=== PATIENT | male | born 1945 | race Caucasian/White ===

== ENCOUNTER 2017-07-23 11:37 | Inpatient (IN) | payer MEDICARE, OTHER ==
[2017-07-23] MEDS ORDERED: NS 1,000 ML IV ONE (12:44)
[2017-07-23 12:58] LABS: PLATELET COUNT 233 10^3/uL (150-400)
--- NOTE | 2017-07-23 13:21 | EDPHY ---
H & P Time Seen by Provider: 07/23/17 12:42 HPI/ROS: Chief complaint. Back pain, leg weakness HPI. Patient is 72-year-old male presents emergency department with back pain for about 6 weeks. He be began to have back pain after working out in the gym. It has continued. About 10 days ago he noticed that he started to have leg weakness and off balance. He has developed a wide-based gait with walking. He knows he has a hard time raising his toes. He has tripped and fallen. He has no radiation of pain from his low back into his legs. No bowel or bladder symptoms. No numbness. Off balance is a big concern and complaint. ROS Constitutional. no fever/chills, no weakness Eyes. no problems with vision ENT. no sore throat, no nasal drainage Cardiovascular. no chest pain Respiratory. no shortness of breath, no cough Abdominal. no abdominal pain, no nausea/vomiting, no diarrhea . no problems urinating MS. Low back pain Skin. no rash Lymph. no swollen glands Neuro. Off balance and leg weakness (Mike Dey) Past Medical/Surgical History: Past medical history is significant for thoracic outlet syndrome, hypertension, bipolar illness (Mike Dey) Social History: , nonsmoker, no alcohol (Mike Dey) Physical Exam: General Appearance: Alert pleasant well-developed male mild distress vital signs stable Eyes: Pupils equal and round no pallor or injection. ENT, Mouth: Mucous membranes are moist. Respiratory: There are no retractions, lungs are clear to auscultation. Cardiovascular: Regular rate and rhythm. Gastrointestinal: Abdomen is soft and nontender, no masses, bowel sounds normal. Neurological: Awake and alert, no numbness or saddle anesthesia. Deep tender reflexes are diminished but symmetrical. Great toe strength is decreased bilaterally. Skin: Warm and dry, no rashes. Musculoskeletal: Neck is supple nontender. Diffuse tenderness to the low back Extremities symmetrical, full range of motion. Psychiatric: Patient is oriented X 3, there is no agitation. (Mike Dey) Constitutional: Initial Vital Signs Temperature (C) 36.6 C 07/23/17 11:41 Heart Rate 90 07/23/17 11:41 Respiratory Rate 16 07/23/17 11:41 Blood Pressure 163/92 H 07/23/17 11:41 O2 Sat (%) 93 07/23/17 11:41 O2 Delivery Mode Room Air Allergies/Adverse Reactions: No Known Allergies Allergy (Unverified 07/23/17 11:41) Home Medications: Medication Instructions Recorded amLODIPine BESYLATE [Norvasc 10 mg 10 mg PO DAILY 07/23/17 (*)] lamoTRIgine [Lamictal] 200 mg PO DAILY 07/23/17 Medical Decision Making - Diagnostics Imaging Results: MRI reviewed by me and discussed with Dr. Trujillo shows severe central canal stenosis at L4-5. This is consistent with cauda equina syndrome (Mike Dey ) Procedures: IV normal saline. (Mike Dey) ED Course/Re-evaluation: I assumed care of this patient from Dr. Dey at approximately 3:00 p.m.. At that point in time his MRI had been resulted, showing severe stenosis at L4-5. Neurosurgery consultation had been requested and was performed in the emergency department. Arrangements were made for the patient to be admitted to the Neurosurgical service in preparation for operative intervention. I was not otherwise involved in his care. (Ro Robins) Patient and I discussed imaging and lab results. We discussed treatment plan including recommendation for admission and neurosurgery consult. He expresses understanding and agreement (Mike Dey) Differential Diagnosis: I considered cauda equina syndrome. He does have bowel or bladder symptoms or saddle anesthesia but he has new gait disturbance and leg weakness. I also considered HNP as well as urinary tract infection (Mike Dey) Care Turn Over: Dr. Robins at 3:30 p.m. (Mike Dey) - Data Points Laboratory Results: Laboratory Results 07/23/17 12:50 07/23/17 12:50 Medications Given: Lactated Ringer's (Lr) 1,000 mls @ 100 mls/hr IV CONT GEORGES Stop: 01/19/18 23:54 Last Admin: 07/23/17 23:46 Dose: 1,000 mls Oxycodone HCl (Oxycodone Ir) 5 mg PO Q4HRS PRN PRN Reason: Pain, Severe Able to Take PO Stop: 08/02/17 16:34 Last Admin: 07/24/17 09:50 Dose: 5 mg Polyethylene Glycol (Miralax) 17 gm PO DAILY GEORGES Stop: 01/19/18 16:59 Last Admin: 07/23/17 19:02 Dose: Not Given Discontinued Medications Bacitracin (Bacitracin Syringe) Confirm Administered Dose 200,000 units IRR .STK -MED ONE Stop: 07/24/17 11:08 Last Admin: 07/24/17 14:23 Dose: 200,000 units Bupivacaine HCl (Sensorcaine 0.25% Sdv) Confirm Administered Dose 60 ml .ROUTE .STK-MED ONE Stop: 07/24/17 11:06 Last Admin: 07/24/17 14:22 Dose: 60 ml Chlorhexidine Gluconate (Hibiclens) Confirm Administered Dose 1 btl TP .STK-MED ONE Stop: 07/24/17 11:07 Last Admin: 07/24/17 14:22 Dose: 1 btl Epinephrine HCl (Epinephrine) Confirm Administered Dose 1 mg .ROUTE .STK-MED ONE Stop: 07/24/17 11:07 Last Admin: 07/24/17 14:23 Dose: 1 mg Sodium Chloride (Ns) 1,000 mls @ 0 mls/hr IV EDNOW ONE; Wide Open PRN Reason: Protocol Stop: 07/23/17 12:45 Last Admin: 07/23/17 13:17 Dose: 1,000 mls Lactated Ringer's (Lr) 1,000 mls @ 0 mls/hr IV ONCE ONE PRN Reason: KVO Stop: 07/24/17 11:56 Last Admin: 07/24/17 12:15 Dose: 1,000 mls Midazolam HCl (Versed) 1 mg IVP ONCE ONE Stop: 07/24/17 12:28 Last Admin: 07/24/17 13:20 Dose: 1 mg Thrombin (Thrombin-Jmi) Confirm Administered Dose 5,000 unit TP .STK-MED ONE Stop: 07/24/17 11:07 Last Admin: 07/24/17 14:21 Dose: 5,000 unit Departure - Departure Disposition: [facility] Inpatient Acute Clinical Impression: Lumbar canal stenosis Qualifiers: Neurogenic claudication status: unspecified Qualified Code(s): M48.061 - Spinal stenosis, lumbar region without neurogenic claudication Condition: Fair
[2017-07-23] MEDS ORDERED: ceFAZolin 2 GM/SWFI 2 GM/20 ML SYR IVP ONE (16:35)
[2017-07-23] MEDS ORDERED: BISACODYL 5 MG EC TAB PO ONE (16:35)
[2017-07-23] MEDS ORDERED: GABAPENTIN 300 MG CAP PO ONE (16:41)
--- NOTE | 2017-07-23 17:03 | GHP ---
]' [ rep st] HISTORY AND PHYSICAL DATE OF ADMISSION: 07/23/2017 Patient seen in the emergency department by neurosurgical service in room 18 on 07/23/2017 at 1610. CHIEF COMPLAINT: Back pain, bilateral leg weakness, and gait disturbance. HISTORY OF PRESENT ILLNESS: The patient is a 72-year-old male who presented emergency department with back pain that really started approximately 6 weeks ago when he was doing a back lifting program. He was doing some lifts as well as leg presses. He felt some onset of back pain at that time, and then over the course of the past nearly 5 weeks, he developed worsening symptoms. The pain has progressed to the point where he is unable to walk as well. He has been at home for the last 8 days. He states the pain would go up and down. He would wake up in the morning, extremely weak and then would walk for approximately 2-3 hours, and then he would have some mild relief. He has had worsening weakness in the legs over the course of the last 8 days, but has been stable over the last few days. He saw Dr. Spangler, his PCP, and he directed him to the emergency department. At the emergency department, he had an MRI of the lumbar spine which showed severe stenosis at L4-5. He denies any bowel or bladder problems. He is voiding okay both moving his bowels as well as peeing. He has no incontinence or urinary retention. He denies any lower extremity pain. He does have weakness in the legs. PAST MEDICAL HISTORY: 1. Significant for hypertension. 2. Bipolar. MEDICATIONS: 1. Lamictal. 2. Norvasc. ALLERGIES: No known drug allergies. PAST SURGICAL HISTORY: Multiple bilateral knee surgeries. FAMILY HISTORY: Parents with cancer. SOCIAL HISTORY: The patient is 72 years old. He is single. He lives in [place]. He is retired. IMMUNIZATIONS: Reported up to date. TRAVEL: Recent travel. REVIEW OF SYSTEMS: Complete review of systems in conjunction with above, noted for the following. No headache. No diplopia. No blurred vision. No loss of visual field. No hearing loss, tinnitus, or vertigo. PULMONARY: No cough, sputum production, hemoptysis, dyspnea, or pleuritic chest pain. CARDIAC: No chest pain or pressure. No palpitations. GI: No weight loss or gain. No nausea, vomiting, or diarrhea. : No dysuria, hematuria, nocturia, urgency, or frequency. NEURO: Patient denies any dizziness, syncope, seizures, vertigo. He does have bilateral lower extremity weakness. No weakness to upper extremities. PSYCHIATRIC: No suicidality or homicidality PHYSICAL EXAMINATION: GENERAL: Awake, alert, and oriented male, in no acute distress. He is able to follow commands appropriately. VITAL SIGNS: Most recent blood pressure 163/92 with a MAP of 115, 90 heart rate, respiratory rate of 16, 93% in room air, temperature 36.6. HEENT. Head is normocephalic, atraumatic. Pupils are equal, round, and reactive to light. EOMI is intact. Full visual murphy by confrontation. Ears are patent. Nose is patent. NECK: Soft and supple. Midline tenderness. Full range of motion in flexion, extension, lateral bending, and rotation. RESPIRATORY: Deferred. CARDIAC: Deferred. ABDOMEN: Soft, nontender. No peritoneal signs. /RECTAL: Deferred. NEURO: Awake, alert, and oriented to name, place, location, date, time, and situation. Memory is intact to immediate, past, and current events. Speech with no aphasia, dysarthria, or dysphonia. Cranial nerves 2 through 12 are grossly intact. Motor: Patient has 5/5 strength in all muscle groups of bilateral upper and lower extremities to include deltoids, biceps, triceps, brachioradialis, wrist flexors, extensors, drying and winding supervisor, intrinsic fingers, iliopsoas, quadriceps, hamstring, plantar flexion, dorsiflexion and EHL testing, with the exception of left EHL at 5- but right of EHL 5/5. Sensation is grossly intact to light touch throughout all dermatomal distributions upper and lower extremities. Negative straight leg raise. Negative SRINATH test. Reflexes of biceps, triceps, brachioradialis, knee jerk and ankle jerk are 2+ out of 4 with the exception of bilateral knee jerk (due to prior surgery) at 1+ on the left and 0 on the right. Patient has had extensive knee surgery. MEDICAL DECISION MAKING/DIAGNOSTIC STUDIES/LABORATORY TESTS: Obtained 2017 shows a white count of 7.17 with an H and H of 16.6 and 46.1 and a platelet count of 233. Chemistry on 07/23/2017: Sodium 139, potassium 4.1, chloride 100, CO2 26, BUN 9, creatinine 0.7, and glucose 91. MEDICAL DECISION MAKING/DIAGNOSTIC STUDIES/IMAGING: MRI of the lumbar spine obtained 07/23/2017 at 1245 shows at L1-2 there is no disk herniation or stenosis. 2-3 disk desiccation, mild diffuse annular bulge. L3-4 disk desiccation, diffuse annular bulge with mild acquired central canal stenosis. Neural foramina are moderately stenotic bilaterally secondary to diffuse annular bulge. At 4-5, there is a broad-based subligamentous central disk protrusion ventrally with ligamentum flavum and facet degenerative hypertrophy posteriorly with severe acquired central canal stenosis and marked crowding of the cauda equina in the thecal space. There are also some extruded disk fragments which tracks along inferior to the right lateral recess, paralleling the right L5 nerve root. There is local mass effect on the L5 nerve root. The disk fragment measures 12 mm in cranial caudal extension and 5.5 mm in width. L5-S1 shows disk desiccation and diffuse annular bulge without discrete disk prolapse. Neural foramina are moderately narrow bilaterally. ASSESSMENT: Back pain that started 6 weeks ago with worsening symptoms over the last 8 days. Stable weakness over the past 2-3 days with severe L4-5 stenosis secondary to disk bulge and ligamentum flavum hypertrophy. PLAN/DISCUSSION: The patient is a 72-year-old male who will be admitted to our service for lower back pain and bilateral lower extremity weakness. He had originally injured his back approximately 6 weeks ago when he was doing some lifts and inclined sled work. He felt a twinge in his back and then over the course of the last nearly 5 weeks he has had this stable back pain. Over the course of the last 8 days, and really stable over the last 3 days, he has had weakness in the lower extremities. He saw his primary care doctor today who sent him to the emergency department and had an MRI done of his lumbar spine which showed the severe stenosis. The patient was seen and evaluated by both me and Dr. Jameson. I will develop a plan accordingly. He is not on any blood thinning medicines. He has not been n.p.o. today. I did instruct him that he needs to be n.p.o. at this time. Dr. Jameson will see and evaluate him and likely add him on tomorrow for a laminectomy at L4-5 vs lami/fusion at L4/5 pending further review of imaging, and a decision. All questions and concerns were answered. Patient understands and agrees. /[id number]/MODL MTDD
[2017-07-23] MEDS: POLYETHYLENE GLYCOL 3350 17 GM PKT PO SCH (19:02)
[2017-07-23] MEDS: oxyCODONE IR 5 MG TAB PO PRN (23:45)
[2017-07-23] MEDS ORDERED: LR 1,000 ML IV SCH (23:55)
[2017-07-24] MEDS: oxyCODONE IR 5 MG TAB PO PRN ×3 (04:14→20:38)
--- NOTE | 2017-07-24 07:10 | NEUSURGPN ---
Assessment/Plan: Assessment: 72 yo male that has had about 6 weeks of LBP with about 8 days of weakness in BLE with LBP. Pt with severe stenosis at L4/5 on MRI Plan: -L 4/5 stenosis: pt will require a TLIF at L4/5 -plan for surgery today at 1200 -NPO -orders in place -no change in neuro exam -consents reviewed and procedure reviewed in detail -pt understands and agrees with procedure -consents signed -pt marked -call NS with any changes or issues Subjective: No new complaints overnight. No garzon/neck/chest/abd or gu complaints. No f/c/n/v /d. No garzon/neck/chest/abd or gu complaints. Objective: AAO x 3, PERRLA/EOMI no droop CN 2-12 grossly intact +lt touch 5/5 BUE/BLE = Neuro Check Frequency: per routine Urinary Catheter in Place: No - Physician Discussed Patient with : Gisell Patient Seen by : Gisell Neurosurgery Physical Exam - Vitals, I&O, Labs I and O 07/23/17 07/24/17 07/25/17 05:59 05:59 05:59 Intake Total 1000 Output Total 2625 Balance -1625 Weight 74.389 kg Intake: IV Infused (ml) 1000 Output: Urine (ml) 2625 Urinal 825 Other: Intake Quantity Yes Sufficient Number of Stools Toilet 1 Vital Signs Temp Pulse Resp BP Pulse Ox 36.6 C 60 16 124/73 H 98 07/24/17 04:12 07/24/17 04:12 07/24/17 04:12 07/24/17 04:12 07/24/17 04:12 ICD10 Worksheet Patient Problems: Problems Problem Status Onset Lumbar canal stenosis Acute
[2017-07-24 08:18] LABS: PROTIME(PATIENT) 13.4 SEC (12.0-15.0)
[2017-07-24] MEDS ORDERED: NON-FORMULARY NEW DRUG (Lamotrigine [Lamictal] 200 MG) PO SCH (09:00)
--- NOTE | 2017-07-24 09:29 | ASMTCMCOM ---
CM Note CM Note Notes: Patient admitted for back pain and found to have severe stenosis at L4-5. He is scheduled to have a TLIF with Dr Jameson today at 1200. He will be evaluated by PT/OT post-operatively. Patient is normally independent in all ADLs and active. He lives alone. Case Management will follow for discharge planning. Date Signed: 07/24/2017 09:28 AM Electronically Signed By:Sisi Hayward RN
--- NOTE | 2017-07-24 09:50 | PDMN ---
Medical Necessity Medical necessity: Pending TLIF L4/5, S820 lumbar fusion: [facility] INPT only. back pain with 6 weeks LBP, 8 days weakness in BLE with LBP , MRI show severe stenosis at L4/5
--- NOTE | 2017-07-24 10:52 | PDANEPAE ---
ANE History of Present Illness 72 year old male w/ PMHx of HTN and bipolar with back pain presents for TLIF. ANE Past Medical History - Cardiovascular History Hx Hypertension: Yes Hx Arrhythmias: No Hx Chest Pain: No Hx Coronary Artery / Peripheral Vascular Disease: No Hx CHF / Valvular Disease: No Hx Palpitations: No - Pulmonary History Hx COPD: No Hx Asthma/Reactive Airway Disease: No Hx Recent Upper Respiratory Infection: No Hx Oxygen in Use at Home: No Hx Sleep Apnea: No Sleep Apnea Screening Result - Last Documented: Positive - Endocrine History Hx Diabetes: No Hypothyroid: No Hyperthyroid: No Obesity: no - Renal History Hx Renal Disorders: No - Liver History Hx Hepatic Disorders: No - Neurological & Psychiatric Hx Hx Neurological and Psychiatric Disorders: Yes Neurological / Psychiatric History Comment: Bipolar. Weakness in bilateral lower extremities (below the knees) - Cancer History Hx Cancer: No - Congenital Disorder History Hx Congenital Disorders: No - GI History Hx Gastrointestinal Disorders: No - Chronic Pain History Chronic Pain: Yes ANE Review of Systems Review of systems is: negative Review of Systems: - Exercise capacity Exercise capacity: >=4 METS ANE Patient History - Allergies Allergies/Adverse Reactions: No Known Allergies Allergy (Unverified 07/23/17 11:41) - Home Medications Home medications: home medication list seen and reviewed Home Medications: amLODIPine BESYLATE [Norvasc 10 mg (*)] 10 mg PO DAILY 07/23/17 [Last Taken ] lamoTRIgine [Lamictal] 200 mg PO DAILY 07/23/17 [Last Taken 07/23/17] - NPO status NPO Status: no food or drink >8 hours NPO Since - Liquids (Date): 07/24/17 NPO Since - Liquids (Time): 00:00 NPO Since - Solids (Date): 07/24/17 NPO Since - Solids (Time): 00:00 - Anes Hx Anes Hx: no prior problems - Smoking Hx Smoking Status: Never smoked Marijuana use: No - Alcohol Use Alcohol Use: Rarely - Family Anes Hx Family Anes Hx: neg - N/A ANE Labs/Vital Signs - Labs Result Diagrams: 07/23/17 12:50 07/23/17 12:50 - Vital Signs Vital Signs: reviewed preoperatively; see RN documention for details Blood Pressure: 150/82 Heart Rate: 67 Respiratory Rate: 16 O2 Sat (%): 97 Height: 182.88 cm Weight: 74.389 kg ANE Physical Exam - Airway Neck exam: FROM Mallampati Score: Class 2 Mouth exam: normal dental/mouth exam Mouth image: 1 - All veneers and #8 tooth/veneer is broken - Pulmonary Pulmonary: no respiratory distress - Cardiovascular Cardiovascular: regular rate and rhythym - ASA Status ASA Status: II ANE Anesthesia Plan Anesthesia Plan: general endotracheal anesthesia Total IV Anesthesia: No
[2017-07-24] MEDS ORDERED: BUPIVACAINE 0.25% 30 ML SDV ONE (11:05)
[2017-07-24] MEDS ORDERED: EPINEPHrine 1 MG/ML INJ ONE (11:06)
[2017-07-24] MEDS ORDERED: CHLORHEXIDINE GLUC HIBICLENS 118 ML BTL TP ONE (11:06)
[2017-07-24] MEDS ORDERED: THROMBIN (BOVINE) 5,000 UNIT VIAL TP ONE (11:06)
[2017-07-24] MEDS ORDERED: BACITRACIN 50,000 UNITS/10 ML SYR IRR ONE (11:07)
[2017-07-24] MEDS ORDERED: LR 1,000 ML IV ONE (11:55)
[2017-07-24] MEDS ORDERED: ceFAZolin 2 GM/SWFI 20 ML SYR IVP ONE (12:10)
[2017-07-24] MEDS ORDERED: MIDAZOLAM 2 MG/2 ML VIAL IVP ONE (12:27)
[2017-07-24] MEDS ORDERED: PROPOFOL 200 MG/20 ML VIAL ONE (12:34)
[2017-07-24] MEDS ORDERED: PROPOFOL/EMULSION 500 MG/50 ML BOTTLE IV ONE ×2 (12:34→15:32)
[2017-07-24] MEDS ORDERED: DEXAMETHASONE 4 MG/ML VIAL ONE (12:35)
[2017-07-24] MEDS ORDERED: fentaNYL 100 MCG/2 ML INJ ONE ×2 (12:35→17:54)
[2017-07-24] MEDS ORDERED: ONDANSETRON 4 MG/2 ML VIAL ONE (12:35)
[2017-07-24] MEDS ORDERED: ROCURONIUM 50 MG/5 ML VIAL ONE (12:35)
[2017-07-24] MEDS ORDERED: REMIFENTANIL HCL 1 MG VIAL ONE ×2 (12:35→15:32)
[2017-07-24] MEDS ORDERED: LIDOCAINE 2% 5 ML SDV ONE (12:35)
[2017-07-24] MEDS ORDERED: PHENYLEPHRINE 10 MG/ML SDV ONE (12:42)
[2017-07-24] MEDS ORDERED: PHENYLEPHRINE HCL 100 MCG/ML SYR ONE (14:02)
[2017-07-24] MEDS ORDERED: HYDROmorphONE/DILAUDID 1 MG/ML INJ IVP PRN (15:10)
[2017-07-24] MEDS ORDERED: NALOXONE HCL 0.4 MG/ML INJ IVP PRN (15:10)
[2017-07-24] MEDS ORDERED: fentaNYL 100 MCG/2 ML INJ IVP PRN (15:10)
[2017-07-24] MEDS ORDERED: PROMETHAZINE HCL 25 MG/ML INJ IVP PRN ×2 (15:10→17:44)
[2017-07-24] MEDS ORDERED: LR 500 ML IV PRN (15:10)
[2017-07-24] MEDS ORDERED: ONDANSETRON 4 MG/2 ML VIAL IVP PRN ×2 (15:10→17:44)
[2017-07-24] MEDS ORDERED: SURGIFLO MATRIX KIT WITH THROMBIN 8 ML TP ONE (16:08)
--- NOTE | 2017-07-24 17:43 | POSTOPPROG ---
Post Op Note Date of Operation: 07/24/17 Surgeon: Billy Jameson Print Line Feeder: Allie Silva PA-C Anesthesia: GET(General Endotracheal) Pre-op Diagnosis: lumbar radiculopathy Post-op Diagnosis: same Procedure: minimally invasive L4/5 TLIF Inf/Abcess present in the surg proc area at time of surgery?: No Depth: Organ Space EBL: 50 Complications: None, see dictated operative report for full detail SOAP Progress Note Assessment/Plan: Assessment: Plan: 07/24/17 17:40 S: Patient in PACU. Stable. O: NAD, VSS CN II-XII grossly intact Alert, following commands BUE 5/5 BLE 5/5 except for dorsiflexion weakness 4/5 bilaterally same as preop Incisions c/d/i Sensation intact to lt touch A: 72 yo male sp L4/5 Minimally invasive TLIF P: - Advance diet as tolerated -No brace -Optimize pain management -DVT: TEDs, SCDs, Lovenox ok to start 24 hours postop -PT/OT -No drain -Patient seen by Dr. Jameson in PACU Objective: Vital Signs Temp Pulse Resp BP Pulse Ox 36.8 C 67 16 150/82 H 97 07/24/17 12:04 07/24/17 12:27 07/24/17 12:27 07/24/17 12:27 07/24/17 12:27 07/23/17 07/24/17 07/25/17 05:59 05:59 05:59 Intake Total 1000 Output Total 2625 Balance -1625 PT 13.4 SEC (12.0-15.0) 07/24/17 08:00 INR 1.00 (0.83-1.16) 07/24/17 08:00
[2017-07-24] MEDS ORDERED: BISACODYL 10 MG SUPP PR PRN (17:44)
[2017-07-24] MEDS ORDERED: LACTULOSE 20 GM/30 ML UDCUP PO PRN (17:44)
[2017-07-24] MEDS ORDERED: ONDANSETRON DISINTEGRATING 4 MG TAB PO PRN (17:44)
[2017-07-24] MEDS ORDERED: MAGNESIUM HYDROXIDE 30 ML UDCUP PO PRN (17:44)
[2017-07-24] MEDS ORDERED: POLYETHYLENE GLYCOL 3350 17 GM PKT PO PRN (17:44)
[2017-07-24] MEDS ORDERED: diphenhydrAMINE 25 MG CAP PO PRN (17:44)
[2017-07-24] MEDS ORDERED: NS W/ 20 KCl/L 1,000 ML IV SCH (17:45)
--- NOTE | 2017-07-24 17:46 | POSTANESTH ---
Post Anesthetic Evaluation Cardiovascular Status: Normal, Stable, Similar to Pre-Op Cond Respiratory Status: Normal, Stable, Similar to Pre-op Cond. Level of Consciousness/Mental Status: Can Participate in Eval, Alert and Oriented Pain Control: Adequate, Prn Tx Ordered Nausea/Vomiting Control: Adequate, Prn Tx Ordered Complications Possibly Related to Anesthesia: None Noted
[2017-07-24] MEDS ORDERED: HYDROmorphONE/DILAUDID 2 MG/ML INJ ONE (17:54)
[2017-07-24] MEDS ORDERED: DIAZEPAM 5 MG/ML 1 ML SYR ONE (18:07)
[2017-07-24] MEDS: DIAZEPAM 5 MG/ML 1 ML SYR IVP PRN ×2 (18:10→18:20)
[2017-07-24] MEDS: METHOCARBAMOL 750 MG TAB PO PRN (20:37)
[2017-07-24] MEDS: SENNOSIDES/DOCUSATE SODIUM TAB PO SCH (20:37)
[2017-07-24] MEDS: lamoTRIgine 100 MG TAB PO SCH (20:52)
[2017-07-24] MEDS: POLYETHYLENE GLYCOL 3350 17 GM PKT PO SCH (21:26)
[2017-07-24] MEDS: ACETAMINOPHEN 500 MG TAB PO SCH (21:53)
[2017-07-24] MEDS: ceFAZolin 2 GM/SWFI 2 GM/20 ML SYR IVP SCH (21:53)
[2017-07-24] MEDS ORDERED: ceFAZolin 2 GM/DEXTROSE 100 ML IV SCH (22:00)
[2017-07-25] MEDS: oxyCODONE IR 5 MG TAB PO PRN ×6 (01:05→22:09)
[2017-07-25] MEDS: ceFAZolin 2 GM/SWFI 2 GM/20 ML SYR IVP SCH (05:06)
[2017-07-25] MEDS: ACETAMINOPHEN 500 MG TAB PO SCH ×3 (05:07→20:15)
[2017-07-25] MEDS: METHOCARBAMOL 750 MG TAB PO PRN ×3 (05:07→20:15)
--- NOTE | 2017-07-25 08:07 | NEUSURGPN ---
Assessment/Plan: Assessment: Plan: S: Patient is doing well this morning. Has decrease in gluteal pain and mostly incisional pain at this time. Working with PT for the first time since surgery. O: NAD, VSS CN II-XII grossly intact Alert, following commands BUE 5/5 BLE 5/5 except for dorsiflexion weakness 4/5 bilaterally same as preop Incisions c/d/i Sensation intact to lt touch A: 72 yo male sp L4/5 Minimally invasive TLIF P: - Neuro: Overall doing well -No brace -Optimize pain management- will increase robaxin today -DVT: TEDs, SCDs, Lovenox to start today -PT/OT -No drain -Dispo- Possibly dc tomorrow if clears therapies and pain well controlled -Patient seen by Dr. Jameson as well - Physician Discussed Patient with : Gisell Patient Seen by : Gisell Neurosurgery Physical Exam - Vitals, I&O, Labs I and O 07/24/17 07/25/17 07/26/17 05:59 05:59 05:59 Intake Total 1000 3610 Output Total 2625 1850 Balance -1625 1760 Weight 74.389 kg 74.389 kg Intake: Oral (ml) 1670 IV Intake (ml) 1940 IV Infused (ml) 1000 Output: Urine (ml) 2625 1800 Catheter 650 Urinal 825 1150 Estimated Blood Loss (ml) 50 Other: Intake Quantity Yes Sufficient Number of Voids Urinal 1 Number of Stools Toilet 1 Vital Signs Temp Pulse Resp BP Pulse Ox 36.6 C 80 16 125/79 H 95 07/25/17 03:28 07/25/17 03:28 07/25/17 03:28 07/25/17 03:28 07/25/17 03:28 ICD10 Worksheet Patient Problems: Problems Problem Status Onset Lumbar canal stenosis Acute
[2017-07-25] MEDS: ENOXAPARIN 40 MG/0.4 ML SYR SC SCH (08:13)
[2017-07-25] MEDS: SENNOSIDES/DOCUSATE SODIUM TAB PO SCH ×2 (08:13→20:15)
[2017-07-25] MEDS: lamoTRIgine 100 MG TAB PO SCH (08:13)
[2017-07-25] MEDS: POLYETHYLENE GLYCOL 3350 17 GM PKT PO SCH (08:13)
--- NOTE | 2017-07-25 08:26 | GOP ---
[f rep st] OPERATIVE REPORT DATE OF OPERATION: 07/24/2017 SURGEON: Billy Jameson MD NEUROSURGEON: Billy Jameson MD. ANESTHESIA: General endotracheal. PREOPERATIVE DIAGNOSIS: Severe central canal and lateral recess stenosis with severe foraminal stenosis at L4-5 and bilateral leg weakness in an L5 distribution. POSTOPERATIVE DIAGNOSIS: Severe central canal and lateral recess stenosis with severe foraminal stenosis at L4-5 and bilateral leg weakness in an L5 distribution. PROCEDURE PERFORMED: 1. L4-5 minimally invasive transforaminal lumbar interbody fusion. 2. Placement of interbody device at L4-5. 3. Posterior spinal instrumentation at L4 and L5 bilaterally. 4. Use of the operative microscope. 5. O-arm/Stealth stereotactic navigation for screw placement. 6. Use of locally harvested autograft. 7. Allograft, BMP and cancellous bone chips. 8. Intraoperative neurophysiologic monitoring including somatosensory evoked potentials and EMG. 9. Bilateral facetectomy with complete foraminal decompression L4-5 FINDINGS: Successful transforaminal lumbar interbody fusion. SPECIMENS: None. ESTIMATED BLOOD LOSS: 50 cc. INDICATIONS: The patient is a 72-year-old man who presented with about a month of progressive leg weakness in an L4 and L5 distribution, primarily L5. His MRI shows significant central canal and lateral recess stenosis as well as bilateral neuroforaminal stenosis at L4-5. We discussed the options of minimally invasive lumbar decompression, but I did not think that we would be able to decompress the foramen adequately from that approach. Therefore, we decided on a transforaminal lumbar interbody fusion with bilateral facetectomies. DESCRIPTION OF PROCEDURE: After informed consent was obtained from the patient , the patient was brought to the operating room and a formal time-out was performed, identifying the patient by name, medical record number and date of . Preoperative antibiotics were given. The endotracheal tube was placed and general endotracheal anesthesia was smoothly induced. The patient was turned to the prone position on the Jim table and all appropriate pressure points were padded and checked. All appropriate leads were placed for intraoperative neurophysiologic monitoring. At this point, the lumbar region was prepped and draped in the normal sterile fashion. A stab incision was made over the right iliac crest, and a percutaneous pin was placed into the iliac crest for the stereotactic frame. At this point, the patient was draped and an O-arm spin was obtained showing the relevant anatomy from L3-S1. We then localized the area using the navigation for bilateral Carmelina incisions over the facet joints of L4-5. A 2 cm incision was marked in each of these locations over the L4-5 disk space. On the right side, the incision was made and subcutaneous tissues were dissected using monopolar electrocautery. The fascia over the paraspinous muscles was opened and the tubular dilators for the quadrant retractor were placed and docked onto the facet joint. The muscle attachments there were interrupted and the tract was dilated down to an 18 mm tube. A 7 cm quadrant retractor was then placed over the facet joint and the operative microscope was brought on the field. The muscle over the facet joint was debrided and the navigation was used to localize the anatomy. First, the high-speed drill was used to make a cut just below the L4 pedicle and another transverse cut was made above the L5 pedicle. The medial lamina was then drilled removing the facet joint completely. The remainder of the inferior facet of L4 was removed and the superior facet of L5 was drilled, allowing a complete facetectomy and complete foraminal decompression. The yellow ligament was then removed decompressing the lateral recess, and the dura was preserved. The L4 nerve root that was exiting was well visualized and well decompressed. At this point, the L5 nerve root was retracted medially, and the disk space was entered. A complete diskectomy was performed using curettes and punches. The cartilaginous endplates were removed and once the disk prep had been completed, about 10 cc of locally harvested autograft from the facet joint and cancellous bone chips were placed into the disk space along with some allograft BMP. The disk space was then sized for an 8 x 28 mm Medtronic Elevate cage, which was packed with BMP and autograft. This was then placed under stereotaxis into the disk space and expanded to its full extent. At this point, more allograft was placed lateral to the cage for the interbody fusion. At this point, all bleeding was controlled using bipolar electrocautery. The retractor was removed and the same procedure was performed on the opposite side. The 1st skin incision was made in the subcutaneous tissue and fascia was opened. Dilators were docked onto the left-sided facet joint and again in the procedure described above, a complete facetectomy was performed on the left side, decompressing the foramen and completely decompressing the lateral recess, and the yellow ligament was removed also decompressing the central canal. Once this decompression was complete, the wound was copiously irrigated using bacitracin irrigation. At this point, a 2nd O-arm spin was obtained showing good decompression and good placement of the cage. The sharp tip awl and 5.5- 6.5 mm tap was then used to locate the entry holes for percutaneous pedicle screws, and the tap was used to tap each pedicle. The Biartyager System was then used to place 6.5 x 55 mm screws at L4 bilaterally, and 6.5 x 50 mm screws at L5 bilaterally. Another O-arm spin was obtained showing the screws in good placement, and then a 4.75 mm x 45 mm titanium ladonna was placed on the left and a 4.75 x 35 mm titanium ladonna was placed on the right. All the locking caps were locked down and tightened to their final torque. Final x-rays were performed showing all the hardware in excellent position. At this point, all the wounds were irrigated using bacitracin irrigation. The fascia was closed using interrupted 0 Vicryl. The deep dermis was closed using interrupted 2-0 Vicryl and the skin was closed using Dermabond. All neurophysiologic monitoring was stable throughout the case. The patient was awakened in the operating, transferred to the PACU in stable condition. All sponge and needle counts were correct at the end of the case. There were no specimens. There were no drains. FLUIDS AND URINE OUTPUT: Per the anesthesia record. /[id number]/MODL MTDD
--- NOTE | 2017-07-25 09:59 | ASMTCMCOM ---
CM Note CM Note Notes: Patient is POD #1 minimally invasive L4-5 TLIF. He worked with therapies for the first time today, and their initial recommendations are for home PT and OT. I spoke with patient, and he is amenable to this. Address/phone confirmed. I placed a referral to [facility] who can accept. Possible d/c tomorrow; Case Management will follow. Date Signed: 07/25/2017 09:58 AM Electronically Signed By:Sisi Hayward RN
[2017-07-26] MEDS: METHOCARBAMOL 750 MG TAB PO PRN ×2 (02:32→12:44)
[2017-07-26] MEDS: oxyCODONE IR 5 MG TAB PO PRN ×3 (02:32→12:44)
[2017-07-26] MEDS: ACETAMINOPHEN 500 MG TAB PO SCH ×3 (06:07→22:54)
--- NOTE | 2017-07-26 07:45 | SOAPPROG ---
SOAP Progress Note Assessment/Plan: Assessment: 72 yo male POD #2 s/p L4/5 Min inv TLIF with Dr. Jameson Doing well this AM, but has incisional pain when standing as expected Plan: PT/OT DC planning rehab consult Discussed with Dr. Jameson 07/26/17 07:42 7 Subjective: awake, alert, pain well controlled. states he has incisional pain as expected denies numbness tingling or weakness. Objective: Vital Signs Temp Pulse Resp BP Pulse Ox 37.7 C 97 16 116/73 90 L 07/25/17 22:24 07/25/17 22:24 07/25/17 22:24 07/25/17 22:24 07/25/17 22:24 07/25/17 07/26/17 07/27/17 05:59 05:59 05:59 Intake Total 3610 1990 Output Total 1850 1300 Balance 1760 690 PT 13.4 SEC (12.0-15.0) 07/24/17 08:00 INR 1.00 (0.83-1.16) 07/24/17 08:00 Neuro: Left EHL weakness 3/5, otherwise 5/5 in legs LEUNG, Sens +LT follows commands, awake, alert and oriented Dressings: CDI no ROGER ICD10 Worksheet Patient Problems: Problems Problem Status Onset Lumbar canal stenosis Acute
[2017-07-26] MEDS: ENOXAPARIN 40 MG/0.4 ML SYR SC SCH (08:43)
[2017-07-26] MEDS: SENNOSIDES/DOCUSATE SODIUM TAB PO SCH ×2 (08:44→22:15)
[2017-07-26] MEDS: POLYETHYLENE GLYCOL 3350 17 GM PKT PO SCH (08:44)
[2017-07-26] MEDS: lamoTRIgine 100 MG TAB PO SCH (08:44)
--- NOTE | 2017-07-26 11:40 | ASMTCMCOM ---
CM Note CM Note Notes: [facility] inpatient rehab assessment order in today. Today PT rec SNF, spoke with pt who is not agreeable to SNF or inpatient rehab stay. Pt adamant he will go home with home PT, a referral to [facility] has already been made. 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 Pt reports he has not been able to work on stairs with therapy yet but lives in a second floor condo. Pt does not have a plan on how to get up to his condo if he is unable to safely navigate stairs, reports he will have to get a friend to come help him. Pt states has a support network of friends local who can assist when he gets home. CM to follow pt progress. Date Signed: 07/26/2017 11:40 AM Electronically Signed By:EVAN Alvarez
[2017-07-27] MEDS: ACETAMINOPHEN 500 MG TAB PO SCH ×2 (03:05→06:34)
--- NOTE | 2017-07-27 06:45 | NEUSURGPN ---
Date of Surgery: 07/24/17 Post Op Day: 3 Assessment/Plan: Assessment: 72 yo male POD #3 s/p L4/5 minimally invasive TLIF with Dr. Jameson Plan: -doing well this AM, but has incisional pain when standing as expected, pt has a chronic hx of knee pain as well -PT/OT- CPM -no BLE pain except for the chronic knee pain now and then -post op xrays reviewed with Dr Jameson-look good -DC planning -rehab consult ordered-pt refused rehab and wants [facility]. I spoke with him about the use of walker when out of bed and risk of falls-he understands and agrees -plan for dc later today -Discussed with Dr. Jameson -warning signs given -call with any questions or concerns Subjective: Awake and alert. NAD. Eating/drinking and voiding. No f/c/n/v/d. No garzon/neck/ chest/abd or gu complaints. Objective: AAO x 3, PERRLA/EOMI no droop CN 2-12 grossly intact +lt touch 5/5 BUE/BLE = CDI Neuro Check Frequency: per routine Urinary Catheter in Place: No - Physician Discussed Patient with : [facility] Physical Exam - Vitals, I&O, Labs I and O 07/26/17 07/27/17 07/28/17 05:59 05:59 05:59 Intake Total 1989 450 Output Total 1300 1725 Balance 690 -1275 Intake: Oral (ml) 1989 450 Output: Urine (ml) 1300 1725 Urinal 1300 1725 Other: Intake Quantity Yes Sufficient Number of Voids Urinal 1 1 Vital Signs Temp Pulse Resp BP Pulse Ox 37.0 C 76 18 132/76 H 94 07/27/17 00:00 07/27/17 00:00 07/27/17 00:00 07/27/17 00:00 07/27/17 00:00 ICD10 Worksheet Patient Problems: Problems Problem Status Onset Lumbar canal stenosis Acute
--- NOTE | 2017-07-27 07:03 | PDIAF ---
- Diagnosis Diagnosis: s/p L4/5 TLIF Code Status: Full Code - Medication Management Discharge Medications: Medications to Continue on Transfer amLODIPine BESYLATE [Norvasc 10 mg (*)] 10 mg PO DAILY 07/23/17 [Last Taken ] lamoTRIgine [Lamictal] 200 mg PO DAILY 07/23/17 [Last Taken 07/23/17] Acetaminophen [Tylenol ES 500 mg (*)] 1,000 mg PO Q8HRS tab 07/27/17 [Last Taken Unknown] Enoxaparin [Lovenox 40 MG (*)] 40 mg SC DAILY #7 syr 07/27/17 [Last Taken Unknown] Methocarbamol [Robaxin 750 mg (*)] 750 mg PO QID PRN #40 tab 07/27/17 [Last Taken Unknown] Sennosides/Docusate Sodium [Senokot-S] 1 - 2 tab PO BID #30 tab 07/27/17 [Last Taken Unknown] oxyCODONE IR [Oxycodone Ir (*)] 5 - 10 mg PO Q4HRS PRN #40 tab 07/27/17 [Last Taken Unknown] Order Planner Antibiotics: none Discharge Medications: Refer to the Discharge Home Medication list for PRN reason. PICC Care - Routine: N/A - Orders Services needed: Home Care, Registered Nurse, Physical Therapy, Occupational Therapy Home Care Face to Face: I certify that this patient was under my care and that I had the required [id number] encounter meeting the encounter requirements on the discharge day. My findings support the fact that the patient is homebound as defined in Home Care Face to Face Continued: CMS Chapter 7 Medicare Benefits Manual 30.1.1 , The condition of the patient is such that there exists a normal inability to leave home and consequently, leaving home would require a considerable and taxing effort. Oxygen: to keep O2 sat above 90% Diet Recommendation: no restrictions on diet Diet Texture: Regular Texture Diet - Follow Up Care Current Providers and Referrals: ALEIDA AYALA [Primary Care Provider] - As per Instructions Billy Jameson MD [Medical Doctor] - (follow up in 2-3 weeks for a recheck)
[2017-07-27 08:07] VITALS: BP 122/73
[2017-07-27] MEDS: SENNOSIDES/DOCUSATE SODIUM TAB PO SCH (08:50)
[2017-07-27] MEDS: lamoTRIgine 100 MG TAB PO SCH (08:50)
[2017-07-27] MEDS: ENOXAPARIN 40 MG/0.4 ML SYR SC SCH (08:50)
[2017-07-27] MEDS: POLYETHYLENE GLYCOL 3350 17 GM PKT PO SCH (08:51)
--- NOTE | 2017-07-27 12:14 | ASDISCHSUM ---
Discharge Information Plan Status:Home with Home Health Medically Cleared to Leave:07/27/2017 Discharge Date:07/27/2017 CM D/C Disposition:Home Health Service ADT D/C Disposition:Home Health Service Projected Discharge Date:07/27/2017 11:00 AM Transportation at D/C:Friend Discharge Delay Reason: Follow-Up Date:07/27/2017 11:00 AM Discharge Slot: Final Diagnosis: Placement Information Referral Type:*Home Health Care Services Referral ID:[id number] Provider Name:[facility] Care Address 1:[address] [place] [address] Address 2: City:[place] Selection Factors: State:[place] Patient Contact Information Contact Name:DEION Relationship:Son Address: Work Phone: City: [facility] Phone: [facility] Code: Email: Financial Information Financial Class:Medicare Advantage Plans Primary Plan Desc:[facility] ADVANTAGE PLANS Primary Plan Number:[id number] Secondary Plan Desc: Secondary Plan Number: Assessment Information [facility] CM Progress Note CM Note CM Note Notes: Patient admitted for back pain and found to have severe stenosis at L4-5. He is scheduled to have a TLIF with Dr Jameson today at 1200. He will be evaluated by PT/OT post-operatively. Patient is normally independent in all ADLs and active. He lives alone. Case Management will follow for discharge planning. Date Signed: 07/24/2017 09:28 AM Electronically Signed By:Siis Hayward RN [facility] CM Progress Note CM Note CM Note Notes: Patient is POD #1 minimally invasive L4-5 TLIF. He worked with therapies for the first time today, and their initial recommendations are for home PT and OT. I spoke with patient, and he is amenable to this. Address/phone confirmed. I placed a referral to [facility] who can accept. Possible d/c tomorrow; Case Management will follow. Date Signed: 07/25/2017 09:58 AM Electronically Signed By:Sisi Hayward RN [facility] CM Progress Note CM Note CM Note Notes: [facility] inpatient rehab assessment order in today. Today PT rec SNF, spoke with pt who is not agreeable to SNF or inpatient rehab stay. Pt adamant he will go home with home PT, a referral to [facility] has already been made. 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 Pt reports he has not been able to work on stairs with therapy yet but lives in a second floor condo. Pt does not have a plan on how to get up to his condo if he is unable to safely navigate stairs, reports he will have to get a friend to come help him. Pt states has a support network of friends local who can assist when he gets home. CM to follow pt progress. Date Signed: 07/26/2017 11:40 AM Electronically Signed By:EVAN Alvarez Case Management Discharge Plan Note Case Management Discharge Discharge Order Complete? Answers: Yes Patient to Obtain Answers: Other Notes: friends Medications Transportation Arranged Answers: Family/Friends Faxed Final Orders Answers: Yes Discharge Comments Notes: Pt is discharging home today with [facility] PT/OT. call center receptionist RN notified. D/C meds and order sent via [employer]. Pt's friend will get his meds and take him home. 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 IM signed, copy to pt and in chart. Date Signed: 07/27/2017 12:12 PM Electronically Signed By:EVAN Carlisle Intervention Information
--- NOTE | 2017-07-27 12:17 | ASMTLACE ---
LACE Length of stay for Answers: 4-6 days current admission Acuity / Level of Answers: Yes Care: Did the patient have an inpatient admission? Comorbidities - select Answers: Other Notes: HTN all that apply # of Emergency department Answers: 1-2 visits in the last 6 months Social determinants Answers: Mental health diagnosis (anxiety, depression, pers onality disorders, etc.) Score: 12 Date Signed: 07/27/2017 12:17 PM Electronically Signed By:EVAN Carlisle
--- NOTE | 2017-08-22 09:54 | GDS ---
[f rep st] DISCHARGE SUMMARY ADMISSION DIAGNOSIS: Severe central canal and lateral recess stenosis with severe foraminal stenosis at L4-5 and bilateral leg weakness in an L5 distribution. DISCHARGE DIAGNOSIS: Severe central canal and lateral recess stenosis with severe foraminal stenosis at L4-5 and bilateral leg weakness in an L5 distribution. HISTORY OF PRESENT ILLNESS: This is a 72-year-old gentleman who presented with about a month or so o f progressive leg weakness in an L4 and L5 distribution, primarily L5. His MRI showed significant ce ntral canal and lateral recess stenosis as well as bilateral neuroforaminal stenosis at L4-5. We dis cussed the options of minimally invasive lumbar decompression, but we did not think that would be abl e to adequately decompress the foramen adequately from that approach. Therefore, we decided on a tra nsforaminal lumbar interbody fusion with bilateral facetectomies. HOSPITAL COURSE: The patient came in through the [facility] ER with bilateral L5 leg weakness . Subsequently, an MRI was performed that showed severe stenosis at L4-5. He was admitted to the [facility] and subsequently underwent a L4-5 minimally invasive transforaminal lumbar interbody fusion at L4-5. He tolerated this procedure well and there were no complications. He was then transferred to the PACU, where he continued to recover until he met criteria to be transferred to the floor. On th e floor, his pain was optimized on oral medications. He worked with therapies. All drains and ab ters were removed, and his postop x-rays showed good hardware placement. Ultimately, he was deemed f it and stable for discharge with Home Health Care on 07/27/2017. He is to follow up with Dr. Gisell corbin approximately 2-3 weeks. DISCHARGE MEDICATIONS: Please see the discharge medication reconciliation report. FOLLOWUP: The patient is to follow up with Dr. Jameson in approximately 2-3 weeks. He is to monitor h is incision for any signs of infection, including drainage, fever, or chills. He is to do no bending at the waist, no lifting or twisting more than 5 or 10 pounds. He is to take Tylenol for pain, narc otics if his pain is not tolerable with Tylenol only. He is to call [facility] with any new or worsening symptoms. Any weakness, loss of bowel or bladder control, or any saddle a nesthesia, he is to go to the emergency room. /[id number]/MODL
== END 2017-07-27 12:18 | disposition home health service (06) | DRG 460 ==
LOC: F3N 17:50
PROVIDERS: ADMIT Neurological Surgery; ATTEND Neurological Surgery
PROC: 0SG00AJ Fusion of Lumbar Vertebral Joint with Interbody Fusion Device, Posterior Approach, Anterior Column, Open Approach (ICD-10-PCS; principal; 2017-07-24 12:00)
PROC: 01NB0ZZ Release Lumbar Nerve, Open Approach (ICD-10-PCS; principal; 2017-07-24 12:00)
PROC: 0ST40ZZ Resection of Lumbosacral Disc, Open Approach (ICD-10-PCS; principal; 2017-07-24 12:00)
PROC: 3E0U0GB Introduction of Recombinant Bone Morphogenetic Protein into Joints, Open Approach (ICD-10-PCS; principal; 2017-07-24 12:00)
DX: M51.26 Other intervertebral disc displacement, lumbar region (principal); M48.061 Spinal stenosis, lumbar region without neurogenic claudication; I10 Essential (primary) hypertension; F31.9 Bipolar disorder, unspecified
CPT/HCPCS: 97116-GP; 97161-GP; 97165-GO; 97530-GO; 97530-GP; 97535-GO; C1713; C1762; G8978-GP-CJ; G8979-GP-CI; G8980-GP-CI; G8987-GO-CI; G8987-GO-CJ; G8988-GO-CI; G8989-GO-CI; J0171; J0690; J1100; J1170; J1650; J2250; J2370; J2405; J2704; J3010; J3360

== ENCOUNTER → 2017-09-11 | Outpatient (CLI) | payer OTHER | LOC: EDSTATUS 16:09 → FIMAGING 16:09 | PROVIDERS: ATTEND Physician Assistant | DX: Z09 Encounter for follow-up examination after completed treatment for conditions other than malignant neoplasm (principal); Z98.1 Arthrodesis status ==

== ENCOUNTER → 2018-07-17 | Outpatient (CLI) | payer OTHER | LOC: FIMAGING 10:12 | PROVIDERS: ATTEND Neurological Surgery | DX: M54.16 Radiculopathy, lumbar region (principal); Z98.1 Arthrodesis status ==